=== PATIENT | female | born 1975 | race Caucasian/White ===

== ENCOUNTER 2022-09-04 15:07 | Emergency (ER) | payer BC, OTHER ==
[~2022-09-04] VITALS: Ht 160 cm; Wt 81.6 kg
[2022-09-04 15:10] VITALS: BP_SYST 132
--- NOTE | 2022-09-04 15:12 | NUR ---
BROUGHT BACK TO BED #4 AND TRIAGED. REPORT GIVEN TO DRAKE
--- NOTE | 2022-09-04 15:17 | NUR ---
PT STATES THAT SHE HAD A PAIN TO LEFT BREAST 2 DAYS AGO AND NOW WITH RASH TO SAME AREA ON LEFT BREAST. PAIN IS A 7/10, PT STATES YEARS AGO SHE HAD SHINGLES AND IT FEELS THE SAME. WARM TO TOUCH PER PT. EXPLAINED TO THAT RASH MIGHT BE CONTAGIOUS AND NOT TO TOUCH IT, PT STATES SHE UNDERSTANDS
--- NOTE | 2022-09-04 15:30 | NUR ---
DR GUSMAN AT BEDSIDE FOR EVALUATION
[2022-09-04] MEDS ORDERED: NEU300 PO (15:51)
[2022-09-04] MEDS ORDERED: VALA10002 PO (15:51)
[2022-09-04] MEDS ORDERED: IBUP-1969 PO (15:51)
[2022-09-04 16:05] VITALS: BP_SYST 132
--- NOTE | 2022-09-04 16:05 | NUR ---
Patient given written and verbal discharge instructions and verbalizes understanding. ER MD discussed with patient the results and treatment provided. Patient in stable condition. ID arm band removed. Rx of IBUPROFEN, NEURONTIN, VALTREX given. Patient educated on pain management and to follow up with PMD. Pain Scale 0/10. Opportunity for questions provided and answered. Medication side effect fact sheet provided.
== END 2022-09-04 16:05 | disposition home or self-care (01) ==
LOC: SED 15:07
DX: B02.9 Zoster without complications (principal); R21 Rash and other nonspecific skin eruption; Z88.1 Allergy status to other antibiotic agents; Z79.899 Other long term (current) drug therapy
CPT/HCPCS: 99283